=== PATIENT | male | born 1950 | race Caucasian/White ===

== ENCOUNTER 2019-07-15 01:21 | Inpatient (IN) ==
[2019-07-15] MEDS ORDERED: Aspirin 81 MG TAB.CHEW PO ONE (01:37)
[2019-07-15] MEDS ORDERED: *HR* Heparin 5,000 UNIT/ML VIAL ONE (01:43)
--- NOTE | 2019-07-15 01:49 | Emergency Department Note ---
Disposition Clinical Impression: ST elevation myocardial infarction (STEMI) Qualifiers: Involved coronary artery: unspecified coronary artery Qualified Code(s): I21.3 - ST elevation (STEMI) myocardial infarction of unspecified site Disposition: Admitted As Inpatient Condition: Serious Time of Disposition: 01:50 Chest Pain HPI - General Chief Complaint: ED Chest Pain Stated Complaint: Chest Pain Time Seen by Provider: 07/15/19 01:37 Source: patient, EMS Limitations: no limitations Vital Signs Reviewed: Yes Nursing Notes Reviewed: Yes - History of Present Illness HPI Narrative: 69-year-old male presents emergency department with concern for chest pain. Nicole taylor reports that he has had intermittent chest pain or last several months, but it got significantly worse today. Reports his chest tightness radiating to his left arm. Reports that he has also been diaphoretic with it as well. Patient holding his hand over his chest. He received aspirin and nitroglycerin in route. His history of peripheral arterial disease and hyperlipidemia, but only reports smoking marijuana. He also has hypertension as well. Severity scale (1-10): 7 - Related Data Allergies Allergy/AdvReac Type Severity Reaction Status Date / Time No Known Allergies Allergy Verified 07/15/19 01:29 All systems ED: reviewed and negative except as stated. Review of Systems: As Per HPI Constitutional: Denies: fever Chest Pain PMH - Past Medical History Medical history: Reports: hyperlipidemia, hypertension Psychiatric history: Reports: no psych history - Social History Smoking Status: Former smoker Alcohol use: Reports: occasionally Drug use: Reports: marijuana Physical Exam - General Limitations: no limitations General appearance: alert Course Vital Signs O2 Sat by Pulse Oximetry 88 07/15/19 01:32 Temperature 98.3 F 07/15/19 01:37 Pulse Rate 79 07/15/19 02:21 Respiratory Rate 20 07/15/19 02:35 Blood Pressure 175/84 07/15/19 02:35 O2 Sat by Pulse Oximetry 94 07/15/19 02:21 Oxygen Delivery Oxygen Delivery Nasal Cannula Chest Pain - MDM Narrative Medical decision making narrative: 69-year-old male presents to the emergency department with acute chest pain, appearing diaphoretic. STEMI alert was called as ST elevation in aVR with diffuse ST depressions raise concern for possible acute occlusion. I spoke to Dr. Laird immediately after calling the STEMI alert the insole presser who will be coming to bedside to see the patient after discussion on the phone. After the evaluation of the patient, Dr. Laird will take him to the [facility]. Patient received aspirin en route. Sublingual nitroglycerin glycerin was administered which relieved patient was chest pain. Nitroglycerin drip was started as well. Heparin was administered to patient. Brilinta was administered as well. Chest X-Ray 07/15/19 01:38 IMPRESSION: Mild bilateral perihilar/infrahilar reticulonodular interstitial prominence which may represent vascular congestion, bronchitis or other infectious/inflammatory process. No focal airspace consolidation or CHF. D/ / Lalito Fan MD / Lalito Fan MD Interpreting Provider: Lalito Fan MD - Lab Data Result diagrams: 07/15/19 01:45 07/15/19 01:45 Lab Results 07/15/19 07/15/19 07/15/19 Range/Units 01:45 01:45 01:45 WBC 20.7 H (4.3-11.1) K/mcL RBC 4.70 (4.19-5.50) M/mcL Hgb 14.7 (12.9-16.9) g/dL Hct 42.9 (37.5-50.1) % MCV 91.3 (83.0-100.0) fL MCH 31.3 (28.0-33.3) pg MCHC 34.3 (31.6-35.5) g/dL RDW 12.5 (11.5-14.5) % Plt Count 496 H (140-400) K/mcL MPV 9.0 L (9.4-12.4) fL Immature Gran % 4.0 (0-4) % Seg Neutrophils % 72.8 % Lymphocytes % 16.2 % Monocytes % 4.2 % Eosinophils % 1.8 % Basophils % 1.0 % Neutrophils # 15.1 H (1.6-8.9) K/mcL Lymphocytes # 3.4 (0.6-4.6) K/mcL Monocytes # 0.9 (0.0-1.3) K/mcL Eosinophils # 0.4 (0.0-0.6) K/mcL Basophils # 0.2 (0.0-0.2) K/mcL Sodium 139 (136-145) mEq/L Potassium 3.3 L (3.5-5.1) mEq/L Chloride 103 (98-107) mEq/L Carbon Dioxide 23 (23-29) mEq/L BUN 21 (8-23) mg/dL Creatinine 1.17 (0.70-1.30) mg/dL Est GFR ( Amer) > 60 (> 60) Est GFR (Non-Af Amer) > 60 (> 60) BUN/Creatinine Ratio 18 (6-26) Glucose 180 H (70-105) mg/dL Calculated Osmolality 296 (280-300) Calcium 10.2 (8.6-10.3) mg/dL Magnesium 2.2 (1.6-2.6) mg/dL Troponin I 0.23 H* (< 0.04) ng/mL Specimen Rejected Miscellaneous - EKG Data EKG attestation: Yes I reviewed and interpreted this EKG. EKG results narrative: Dear 1:29 Heart rate 87 bpm, MT interval 180 ms, QRS duration 83 ms, QT 369 ms, QTC 444 ms , normal axis. Sinus rhythm, heart rate of [address] elevation of 2 mm in aVR as well as 1.5 mm of elevation in V1. There is also diffuse ST depression in the inferior, anterior, and lateral leads. ECG was received and signed at 01:33. STEMI alert was called upon seeing patient at 01:36 I have spoken to the insole presser, Dr. Laird about the patient who will be coming to see the patient at bedside. Heart Score - Score History: Highly Suspicious EKG: Significant ST-Depression Age: Greater than 65 Risk Factors: Equal/Greater than 3 risk factor or history of atherosclerotic disease
[2019-07-15] MEDS ORDERED: Heparin 1,000 UNITS/500 mL 500 ML ONE (01:58)
[2019-07-15] MEDS ORDERED: *HR* Midazolam HCl 2 MG/2 ML VIAL ONE (01:58)
[2019-07-15] MEDS ORDERED: *HR* Heparin 10,000 UNIT/10 ML VIAL ONE (01:58)
[2019-07-15] MEDS ORDERED: Tirofiban 12.5 MG/250ML 12.5 MG/250 ML BAG ONE (01:58)
[2019-07-15] MEDS ORDERED: *HR* FentaNYL (PF) 100 MCG/2 ML VIAL ONE (01:58)
[2019-07-15] MEDS ORDERED: 0.9 % Sodium Chloride 1,000 ML ONE ×2 (01:58→01:59)
[2019-07-15] MEDS ORDERED: Iopamidol 125 ML INFUS..BTL ONE ×3 (01:59→03:17)
[2019-07-15] MEDS ORDERED: Nitroglycerin 1,000 MCG/10 ML VIAL IV ONE (01:59)
[2019-07-15] MEDS: Nitroglycerin 0.4 MG TAB.SUBL SL ONE ×2 (02:05→02:10)
[2019-07-15] MEDS: Nitroglycerin 25 MG/250 ML INFUS..BTL IVC SCH ×2 (02:12→16:45)
[2019-07-15 02:14] LABS: Basophils # 0.2 K/mcL (0.0-0.2); Eosinophils # 0.4 K/mcL (0.0-0.6); Eosinophils % 1.8 %; Hematocrit 42.9 % (37.5-50.1); Hemoglobin 14.7 g/dL (12.9-16.9); Lymphocytes # 3.4 K/mcL (0.6-4.6); Lymphocytes % 16.2 %; Mean Corpuscular HGB Conc 34.3 g/dL (31.6-35.5); Mean Corpuscular Hemoglobin 31.3 pg (28.0-33.3); Mean Corpuscular Volume 91.3 fL (83.0-100.0); Monocytes # 0.9 K/mcL (0.0-1.3); Monocytes % 4.2 %; Neutrophils # 15.1 K/mcL (1.6-8.9); Platelet Count 496 K/mcL (140-400); Red Cell Distribution Width 12.5 % (11.5-14.5); Segmented Neutrophils % 72.8 %; White Blood Count 20.7 K/mcL (4.3-11.1)
[2019-07-15] MEDS ORDERED: *HR* Heparin 5,000 UNIT/ML VIAL IVP PRN ×2 (02:14)
[2019-07-15] MEDS ORDERED: *HR* Heparin 5,000 UNIT/ML VIAL IVP ONE (02:14)
[2019-07-15] MEDS: *HR* Ticagrelor 90 MG TABLET PO ONE ×2 (02:16→02:28)
[2019-07-15 02:30] LABS: BUN/Creatinine Ratio 18 (6-26); Blood Urea Nitrogen 21 mg/dL (8-23); Calcium 10.2 mg/dL (8.6-10.3); Carbon Dioxide 23 mEq/L (23-29); Chloride 103 mEq/L (98-107); Glucose 180 mg/dL (70-105); Magnesium 2.2 mg/dL (1.6-2.6); Osmolality,Calculated 296 (280-300); Potassium 3.3 mEq/L (3.5-5.1); Sodium 139 mEq/L (136-145); eGFR For African Americans > 60 (> 60); eGFR For Non-African Americans > 60 (> 60)
[2019-07-15 02:33] LABS: Troponin I 0.23 ng/mL (< 0.04)
--- NOTE | 2019-07-15 02:42 | Emergency Department Note ---
Disposition Clinical Impression: ST elevation myocardial infarction (STEMI) Qualifiers: Involved coronary artery: unspecified coronary artery Qualified Code(s): I21.3 - ST elevation (STEMI) myocardial infarction of unspecified site Disposition: Admitted As Inpatient Condition: Serious Time of Disposition: 01:50 General Adult HPI - General Chief complaint: ED Chest Pain Stated complaint: Chest Pain Time Seen by Provider: 07/15/19 01:37 Source: patient, EMS Limitations: no limitations Nursing Notes Reviewed: Yes Vital Signs Reviewed: Yes - History of Present Illness Pain Scale: 7 - Related Data Allergies Allergy/AdvReac Type Severity Reaction Status Date / Time No Known Allergies Allergy Verified 07/15/19 01:29 Constitutional: Denies: fever Past Medical History - Past Medical History Medical history: Reports: hyperlipidemia, hypertension Psychiatric history: Reports: no psych history - Social History Smoking Status: Former smoker Smokeless Tobacco Status: No Alcohol use: Reports: occasionally Drug use: Reports: marijuana Physical Exam - General Limitations: no limitations General appearance: alert Course Vital Signs O2 Sat by Pulse Oximetry 88 07/15/19 01:32 Temperature 98.3 F 07/15/19 01:37 Pulse Rate 79 07/15/19 02:21 Respiratory Rate 20 07/15/19 02:35 Blood Pressure 175/84 07/15/19 02:35 O2 Sat by Pulse Oximetry 94 07/15/19 02:21 Oxygen Delivery Oxygen Delivery Nasal Cannula Medical Decision Making - Lab Data Lab results reviewed: Yes I reviewed the patient's lab results. Result diagrams: 07/15/19 01:45 07/15/19 01:45 Lab Results 07/15/19 07/15/19 07/15/19 Range/Units 01:45 01:45 01:45 WBC 20.7 H (4.3-11.1) K/mcL RBC 4.70 (4.19-5.50) M/mcL Hgb 14.7 (12.9-16.9) g/dL Hct 42.9 (37.5-50.1) % MCV 91.3 (83.0-100.0) fL MCH 31.3 (28.0-33.3) pg MCHC 34.3 (31.6-35.5) g/dL RDW 12.5 (11.5-14.5) % Plt Count 496 H (140-400) K/mcL MPV 9.0 L (9.4-12.4) fL Immature Gran % 4.0 (0-4) % Seg Neutrophils % 72.8 % Lymphocytes % 16.2 % Monocytes % 4.2 % Eosinophils % 1.8 % Basophils % 1.0 % Neutrophils # 15.1 H (1.6-8.9) K/mcL Lymphocytes # 3.4 (0.6-4.6) K/mcL Monocytes # 0.9 (0.0-1.3) K/mcL Eosinophils # 0.4 (0.0-0.6) K/mcL Basophils # 0.2 (0.0-0.2) K/mcL Sodium 139 (136-145) mEq/L Potassium 3.3 L (3.5-5.1) mEq/L Chloride 103 (98-107) mEq/L Carbon Dioxide 23 (23-29) mEq/L BUN 21 (8-23) mg/dL Creatinine 1.17 (0.70-1.30) mg/dL Est GFR ( Amer) > 60 (> 60) Est GFR (Non-Af Amer) > 60 (> 60) BUN/Creatinine Ratio 18 (6-26) Glucose 180 H (70-105) mg/dL Calculated Osmolality 296 (280-300) Calcium 10.2 (8.6-10.3) mg/dL Magnesium 2.2 (1.6-2.6) mg/dL Troponin I 0.23 H* (< 0.04) ng/mL Specimen Rejected Miscellaneous - Radiology Data Radiology results reviewed: Yes I reviewed the patient's radiology results. Chest X-Ray 07/15/19 01:38 IMPRESSION: Mild bilateral perihilar/infrahilar reticulonodular interstitial prominence which may represent vascular congestion, bronchitis or other infectious/inflammatory process. No focal airspace consolidation or CHF. D/ / Lalito Fan MD / Lalito Fan MD Interpreting Provider: Lalito Fan MD - EKG Data EKG #1 EKG attestation: Yes I reviewed and interpreted this EKG. EKG results narrative: EKG shows a sinus rhythm with ventricular rate of 87. Significant ST elevation in aVR and mild ST elevation in V1. Generalized ST segment depression in all other leads except aVL. Critical Care Time Critical Care Time: Yes Total Critical Care Time: 45 Attestation: Critical care performed: Time is exclusive of separately billable procedures. Time includes: direct patient care, patient reassessment, coordination of patient care, interpretation of data (laboratory data, radiology data, and respiratory data), review of patient's medical records, medical consultation and documentation of patient care. Procedures included in critical care time: Procedures excluded from critical care time: Attestation Statement - Attestation Attestation: I, Terrance Escobar MD, personally evaluated this patient and discussed their management with the resident physician. I reviewed the resident's note and agree with the documented findings, medical decision making, and plan of care. I reviewed the residents documentation and agree with the residents assessment and plan of care. I have personally had face to face time with the patient. I personally supervised and was present for the lopez/critical portions of the following procedures completed by the resident: EKG interpretation. 69-year-old male presents to the emergency department with a complaint of severe left-sided chest pain which started about 10 PM tonight and has been constant since onset. Pain radiates to the left arm. Patient complains of shortness of breath with the pain. Some nausea. A few episodes of diaphoresis. No prior history of heart disease. Patient does have a history of hypertension. On examination patient is a well-developed well-nourished elderly male in no acute distress but does appear to be in moderate discomfort. Patient is alert and oriented 3. There is no cyanosis or diaphoresis. Chest is nontender to palpation. Breath sounds are clear and equal bilaterally. Heart regular rate and rhythm. Abdomen soft and nontender with normal bowel sounds. Labs reviewed. Troponin 0.23. EKG shows a sinus rhythm with ventricular rate of 87. Significant ST elevation in aVR and mild ST elevation in V1. Generalized ST segment depression in all other leads except aVL. Chest x-ray showed mild bilateral perihilar/infrahilar vascular congestion. The patient's presentation and symptoms and history and accommodation with the significantly abnormal EKG findings a STEMI alert was called. Patient was seen in the emergency department by the bell tier, Dr. Laird. Patient was taken to the cardiac catheter lab.
[2019-07-15] MEDS ORDERED: Furosemide 40 MG/4 ML VIAL ONE ×2 (02:44→08:46)
--- NOTE | 2019-07-15 03:40 | Cardiology History & Physical ---
Date of Encounter: 07/15/19 Time of Encounter: 03:37 Assessment and Plan (1) Myocardial infarction acute Current Visit: Yes Status: Acute The assessment and plan as outlined above was discussed with the patient and/or family members who expressed understanding and agreement. All questions were answered. Crushing chest pain/SOB, EKG with global ischemia, no improvement yet patient deteriorated on way to cathlab. R/B/A d/w patient for emergent LHC and he agreed. Qualifiers: Myocardial infarction type: non-ST elevation myocardial infarction Qualified Code(s): I21.4 - Non-ST elevation (NSTEMI) myocardial infarction History of Present Illness Chief complaint: Chest Pain HPI: Mr. Mack is a 69 year old male hx of PAD here in ER with on and off months of CP and SOB, presented with unrelenting severe chest pain and SOB started at 10 pm. EKG with global ischemia possible left main/left main equivalent. R/B/A d/w patient and he was taken emergently to the Cathlab. Initially patient was SOB and became more SOB with possible ACPE. Full h&P could not be obtained due to emergent nature of presentation. Past Med Surg Social Fam HX - Past Medical History Medical history: hyperlipidemia, hypertension Psychiatric history: no psych history - Past Surgical History Additional surgical history: stents in right leg. neck surgery - Social History Smoking Status: Former smoker Smokeless Tobacco Status: No Alcohol use: occasionally Drug use: marijuana Medications and Allergies Allergy/AdvReac Type Severity Reaction Status Date / Time No Known Allergies Allergy Verified 07/15/19 01:29 All Systems Review: The remainder of the systems were reviewed and are negative Physical Examination Vital Signs, Last 4 Hours Temp Pulse Resp BP Pulse Ox 07/15/19 02:35 20 175/84 07/15/19 02:21 79 20 157/64 94 07/15/19 02:08 81 20 157/87 94 07/15/19 01:56 95 24 175/74 94 07/15/19 01:49 92 07/15/19 01:37 98.3 F 95 28 152/74 92 07/15/19 01:35 95 28 152/74 92 07/15/19 01:32 92 General: Conversant, No Apparent Distress HEENT: Atraumatic, Normocephaly, Mucus Membranes Moist Neck: No JVD, Normal carotid pulses Cardiac: Reg Rate and Rhythm, Normal S1 and S2, No Murmur Lungs: Normal Breath Sounds, No Wheeze, Rales, Rhonchi Neuro: Alert and responsive, No focal deficits noted Abdomen: Soft, Non-Tender Skin: No rashes noted on visualized skin Musculoskeletal: No Chest Wall Tenderness Extremities: No Clubbing, No Cyanosis, No Edema, Normal Pulses Results 07/15/19 01:45 07/15/19 01:45 Lab Results 07/15/19 07/15/19 01:45 01:45 WBC 20.7 H Hgb 14.7 Hct 42.9 Plt Count 496 H Sodium 139 Potassium 3.3 L Chloride 103 Carbon Dioxide 23 BUN 21 Creatinine 1.17 Glucose 180 H Calcium 10.2 Magnesium 2.2 Troponin I 0.23 H*
[2019-07-15] MEDS ORDERED: Tirofiban 12.5 MG/250ML 12.5 MG/250 ML BAG IVC SCH (03:45)
--- NOTE | 2019-07-15 04:11 | Invasive Diagnostic Lab Proc ---
Name: Emanuel Mack Date of Study: 07/15/2019 Date: 1950 Ht: 68.0in Medical Record#: [id number] Age: 69 Wt: 178.35lb Gender: Male BSA: 1.95 Order #: [id number] BMI: 27.12 Physicians Procedure Physician: Alberto Laird MD Referring MD: Referring MD: Procedures Performed Procedure L HRT ARTERY/VENTRICLE ANGIO PRQ CARD REVASC OK 1 VSL Pre-Procedure Checklist Informed consent is complete signed and on chart. Pt not NPO for procedure and MD aware. Blood Pressure: 156/82 Rhythm: NSR Plan of Care Patient will tolerate the procedure without complications. Adequate level of comfort will be maintained. Hemodynamics will remain stable Patient will recover from procedure without complications. Respiratory function will be maintained. Cardiac rhythm will remain stable. Patient temperature will be maintained. Patient and/or family have verbalized understanding of the procedure. Patient Education Intravenous Access Time IV Size Location DC'd Fluid/Drip Rate Units RN 20g 1 1/4" Patent On Arrival Rt Antecubital 20g 1 1/4" Patent On Arrival Lt Arm Allergies No Known Allergies Vital Signs Time BP (mmHg) HR (bpm) O2 Sat. RR (bpm) LOC 02:54 AM 135 / 84 108 95 % 03:00 AM 172 / 85 94 99 % 22 03:04 AM 156 / 82 90 100 % 22 03:09 AM 123 / 75 92 97 % 18 03:14 AM 142 / 92 106 100 % 21 03:20 AM 157 / 71 86 96 % 22 03:24 AM 156 / 70 91 96 % 24 03:30 AM 189 / 88 94 98 % 23 03:35 AM 169 / 86 93 97 % 20 03:39 AM 177 / 97 104 99 % 20 02:49 AM 133 / 84 98 94 % 20 Procedural Medications Time Medication Dose Units Method Given By 02:54 AM Versed 1 mg Intravenous Payam Reyes RN 02:55 AM Fentanyl 50 mcg Intravenous Payam Reyes RN 02:35 AM Nitroglycerin ml/hr Intravenous 02:41 AM Lidocaine 2% 20 ml Subcutaneous Moussa 02:40 AM Fentanyl 50 mcg Intravenous Payam Reyes RN 03:27 AM Plavix 150 mg Orally Payam Reyes RN 03:29 AM Ancef 1000 mg Intravenous Andexler, Payam S RN 02:45 AM Heparin 1000 units Intravenous Payam Reyes RN 02:50 AM Lasix 40 mg Intravenous Payam Reyes RN 03:10 AM Aggrastat Bolus: 42 ml Intravenous Payam Reyes RN 03:15 AM Aggrastat 12.5mg/250ml 15 ml Intravenous Payam Reyes RN 02:40 AM Versed 1 mg Intravenous Payam Reyes RN ASA Classification: CLASS II- Mild systemic disease (i.e. well-controlled diabetes, hypertension, asthma, cigarette smoking) Ben Score Preprocedure Postprocedure Activity 2- Moves 4 extremities sustained head lift Activity 2- Moves 4 extremities sustained head lift Circulation 2- SBP +/= 20 points of pre-anesthetic level Circulation 2- SBP +/= 20 points of pre-anesthetic level Consciousness 2- Awake and alert oriented x 3 Consciousness 2- Awake and alert oriented x 3 O2 Saturation 1- Needs O2 inhalation to maintain O2 saturation of 90% O2 Saturation 2- Able to maintain O2 satruation of 92% on room air Respiratory 1- Labored or limited respiration requires airway Respiratory 2- Able to deep breathe and cough well Total Score 8 Total Score 10 Contrast Agent: Isovue Diagnostic Contrast: 390 ml Total Contrast: 390 ml Fluoro Dose: 87 mGy Procedure Log Time Note Enter By 02:35 AM Patient arrived at 02:35 with Nitroglycerin Intravenous drip @ 20 ml/hr oparker 02:35 AM Pt arrived to cytology laboratory manager 2 at 02:35 oparker 02:35 AM Patient charges- Angio tray pack, Navilyst 3mm J, Pulse Oximetry and ACIST tubing and transducer oparker 02:35 AM Physician arrived 02:35 oparker 02:35 AM Byron and eddie completed oparker 02:35 AM Sign in performed according to hospital policy. Informed consent was obtained. oparker 02:38 AM Procedure start :38 oparker 02:40 AM Time: 02:40 Versed 1 mg Intravenous Given by Payam Reyes RN opajabari 02:40 AM Time: 02:40 Fentanyl 50 mcg Intravenous Given by Payam Reyes RN 02:41 AM Time: 02:41 20 ml Lidocaine 2% to right groin Subcutaneous Given by Eitan oparker 02:41 AM Time out was performed according to hospital policy. Conscious sedation and anesthesia was achieved (see medication log with in this report above) oparker 02:42 AM Access obtained by percutaneous puncture. 6Fr 10cm Terumo Coburn sheath placed in right Femoral artery. [id number] oparker 02:45 AM 0.035 145cm Navilyst 3mmJ wire [id number] oparker 02:46 AM LCA angiography performed in multiple views. oparker 02:46 AM 5Fr FL 4 catheter inserted over the wire DNC oparker 02:48 AM .014 BMW Lena 190cm guide wire across target lesion- successful. reused? No oparker 02:48 AM 6Fr XB LAD 3.5 Runway guide catheter was used to cannulate the PCI vessel successfully. reused? No oparker 02:49 AM .014 BMW Lena 190cm guide wire # 2 across target lesion- successful. reused? No oparker 02:50 AM Respiratory called for intubation oparker 02:51 AM 2.0 mm x 12 mm Emerge Monorail balloon across target lesion- successful. reused? No oparker 02:52 AM CathStat 02:52 AM Recorded Pressure: Ao, YM=736, Condition=Condition 1 (Aorta) Ao 90/68/79 02:53 AM Recorded Pressure: Ao, PD=470, Condition=Condition 1 (Aorta) Ao 117/66/90 02:53 AM Vitals capture started with the following parameters, Patient=Adult, Interval=5 min, Initial Onwudwgs=047 mmHg, Deflation Rate=3 mmHg, Cuff placed on Right Arm 02:54 AM Balloon catheter removed intact. oparker 02:54 AM BN=024 bpm, RLFF=596/84 mmhg, SpO2=95.0 % 02:55 AM Time: 02:54 Versed 1 mg Intravenous Given by Payam Reyes RN oparker 02:55 AM Time: 02:55 Fentanyl 50 mcg Intravenous Given by Payam Reyes RN oparker 02:55 AM 2.5 mm x 12 mm Emerge Monorail balloon across target lesion- successful. reused? No oparker 02:55 AM Balloon inflated @ 10 akosua for 6 seconds oparker 02:56 AM Balloon inflated @ 10 akosua for 7 seconds oparker 02:57 AM Balloon inflated @ 10 akosua for 4 seconds oparker 02:57 AM Balloon inflated @ 10 akosua for 4 seconds oparker 02:57 AM Balloon inflated @ 10 akosua for 4 seconds oparker 02:58 AM Balloon catheter removed intact. oparker 02:58 AM Recorded Pressure: Ao, YR=809, Condition=Condition 1 (Aorta) Ao 130/75/100 02:59 AM Recorded Pressure: Ao, HR=96, Condition=Condition 1 (Aorta) Ao 151/70/105 03:00 AM HR=94 bpm, TAEJ=777/85 mmhg, SpO2=99.0 %, Resp=22 B/min 03:01 AM 3.5mm x 20mm Synergy drug-eluting stent across target lesion- successful Lot #[id number] oparker 03:02 AM Recorded Pressure: Ao, HR=90, Condition=Condition 1 (Aorta) Ao 97/52/74 03:04 AM Recorded Pressure: Ao, HR=90, Condition=Condition 1 (Aorta) Ao 116/67/91 03:04 AM HR=90 bpm, SZJF=423/82 mmhg, UlO9=277.0 %, Resp=22 B/min 03:08 AM Stent deployed @ 9 akosua for 10 seconds oparker 03:08 AM Stent balloon reinflated @ 16 akosua for 7 seconds oparker 03:08 AM NIBP STAT measurement started. 03:09 AM HR=92 bpm, ESYK=474/75 mmhg, SpO2=97.0 %, Resp=18 B/min 03:09 AM Stent delivery system removed intact. oparker 03:10 AM Time: 03:10 Aggrastat Bolus: 42 ml Intravenous Given by Payam Reyes RN Aruajo pump oparker 03:11 AM Recorded Pressure: Ao, HR=94, Condition=Condition 1 (Aorta) Ao 146/65/100 03:11 AM 4.0 mm x 20mm NC Emerge balloon across target lesion- successful. reused? No oparker 03:12 AM anesthesia arrived oparker 03:12 AM Balloon inflated @ 12 akosua for 4 seconds oparker 03:12 AM Balloon inflated @ 12 akosua for 4 seconds oparker 03:13 AM Balloon inflated @ 12 akosua for 4 seconds oparker 03:13 AM Balloon inflated @ 12 akosua for 3 seconds oparker 03:14 AM SN=473 bpm, OKKY=693/92 mmhg, BpX2=380.0 %, Resp=21 B/min 03:14 AM Balloon catheter removed intact. oparker 03:14 AM Recorded Pressure: Ao, DR=719, Condition=Condition 1 (Aorta) Ao 161/79/116 03:15 AM Time: 03:15 Aggrastat 12.5mg/250ml 15 ml Intravenous Given by Payam Reyes RN Araujo pump oparker 03:18 AM Recorded Pressure: Ao, HR=91, Condition=Condition 1 (Aorta) Ao 130/54/85 03:20 AM HR=86 bpm, ZNUF=359/71 mmhg, SpO2=96.0 %, Resp=22 B/min 03:22 AM Guide wire removed intact. oparker 03:22 AM Guide wire 2 removed intact. oparker 03:23 AM Guide catheter removed intact. oparker 03:23 AM 5Fr FR 4 catheter inserted over the wire DNC oparker 03:24 AM Recorded Pressure: LV, HR=88, Condition=Condition 1 (Left Ventricle) LV 145/6/9 03:24 AM Catheter crossed the aortic valve and was selectively placed in the left ventricle. Pressures recorded on pullback for left heart catheterization. oparker 03:24 AM HR=91 bpm, HEVQ=808/70 mmhg, SpO2=96.0 %, Resp=24 B/min 03:24 AM Recorded Pressure: LV, Ao, HR=87, Condition=Condition 1 (Left Ventricle) LV 69/14/65, (Aorta) Ao 120/56/88 03:25 AM RCA angiography performed in multiple views. oparker 03:25 AM Catheter removed oparker 03:26 AM Procedure completed at 03:26 07/15/2019 oparker 03:26 AM Did you address KARLENE flow and Dominance? YesCoronary Dominance: Left oparker 03:27 AM Sign out completed: Radiation Dose 1085.26 mGy, 86.7 Gy/cm2 Fluoro Time: 14.6 Isovue 370 - 200ml contrast 390 ml given by Alberto Laird MD. Complications: None. The patient was discharged out of the medical laboratory manager in stable condition. Sedation minutes 50. Cardiac Rehab Consult needed: Yes. Confirmed administered medications: Yes oparker 03:27 AM Time: 03:27 Plavix 150 mg Orally Given by Payam Reyes RN oparker 03:27 AM Isovue 370 - 200ml,4 Bottle(s) used. oparker 03:28 AM Arterial sheath pulled, Angio-seal closure device used and was Successful [id number] S/N. oparker 03:28 AM Estimated Blood Loss: less than 50cc oparker 03:28 AM Post ECG NSR oparker 03:28 AM Post Blood Pressure 156/70 oparker 03:28 AM 03:28 Post Pulses Bilateral DP 1+ oparker 03:28 AM Information taught Cardiac Cath, PCI, and Angioseal oparker 03:28 AM Education needs Procedure, Plan of Care, and Disease Process oparker 03:28 AM Family placed in consult room. oparker 03:28 AM Learning barriers :None oparker 03:28 AM Education Methods Verbal oparker 03:28 AM Education evaluation Able to repeat information oparker 03:29 AM Time: 03:29 Ancef 1000 mg Intravenous Given by Payam Reyes RN oparvitor 03:30 AM HR=94 bpm, AITM=716/88 mmhg, SpO2=98.0 %, Resp=23 B/min 03:32 AM Time: 02:45 Heparin 1000 units Intravenous Given by Payam Reyes RN oparvitor 03:33 AM Time: 02:50 Lasix 40 mg Intravenous Given by Payam Reyes RN oparker 03:35 AM HR=93 bpm, UKNS=187/86 mmhg, SpO2=97.0 %, Resp=20 B/min 03:36 AM Site status No bleeding/ No Hematoma - Rt Groin as reported by Rosibel Jensen RT (R) at 03:36 oparker 03:36 AM Opsite applied oparker 03:39 AM ASA Class CLASS II- Mild systemic disease (i.e. well-controlled diabetes, hypertension, asthma, cigarette smoking) oparker 03:39 AM QV=976 bpm, KTVT=296/97 mmhg, SpO2=99.0 %, Resp=20 B/min 03:44 AM Lesion found in Ostial LMCA. Pre Stenosis: 99 Pre KARLENE Flow: 3: Complete and Brisk Flow/Perfusion oparker 03:44 AM Left Main Coronary Artery with 99% stenosis oparker 03:45 AM Vitals capture stopped. 03:45 AM Mid/Distal Left Anterior Descending Coronary Artery and diagonal branches with 65% stenosis. If graft is supplying this area, 0 % stenosis opajabari 03:45 AM Lesion found in Mid LAD. Pre Stenosis: 65 Pre KARLENE Flow: angela 04:06 AM Patient out of room: 04:05 angela 04:06 AM Report given to Cesar WRIGHT Pt taken to ICU Room #4. 04:06 angela Complications Complication None Hemodynamics Pressures Site Systolic/A Wave Diastolic/V Wave Mean AO 90 68 79 AO 117 66 90 AO 130 75 100 AO 151 70 105 AO 97 52 74 AO 116 67 91 AO 146 65 100 AO 161 79 116 AO 130 54 85 LV 145 6 9 LV 69 14 65 AO 120 56 88 Post Procedure Information Blood Pressure: 156/70 mmHg Rhythm: NSR Post procedural instructions were given Closure Device Time Device Success/Fail 07/15/2019 3:35:00 AM Angio-Seal VIP Successful Site Checks Time Location Status Staff Sheath In? Note 03:36 AM Rt Groin No bleeding/ No Hematoma Rosibel Jensen RT (R) Pulses Time Site Pre-Procedure Post-Procedure Note 3:28:00 AM Bilateral DP 1+ Updated by Pascual Forrest RN on 07/15/2019 4:06:16 AM electronically signed on 07/15/2019 4:06:37 AM with status of Final
[2019-07-15] MEDS: Heparin 25,000 UNIT/250 ML D5W 25,000 UNIT/250 ML IV.SOLN IVC SCH ×2 (04:22→21:04)
[2019-07-15 06:23] LABS: Basophils # 0.2 K/mcL (0.0-0.2); Basophils % 0.7 %; Eosinophils % 0.1 %; Hematocrit 41.8 % (37.5-50.1); Hemoglobin 14.6 g/dL (12.9-16.9); Immature Granulocytes % 3.5 % (0-4); Lymphocytes # 1.6 K/mcL (0.6-4.6); Lymphocytes % 7.2 %; Mean Corpuscular HGB Conc 34.9 g/dL (31.6-35.5); Mean Corpuscular Hemoglobin 31.7 pg (28.0-33.3); Mean Corpuscular Volume 90.7 fL (83.0-100.0); Mean Platelet Volume 8.8 fL (9.4-12.4); Monocytes % 4.3 %; Neutrophils # 19.1 K/mcL (1.6-8.9); Platelet Count 485 K/mcL (140-400); Red Blood Count 4.61 M/mcL (4.19-5.50); Red Cell Distribution Width 12.7 % (11.5-14.5); Segmented Neutrophils % 84.2 %; White Blood Count 22.7 K/mcL (4.3-11.1)
[2019-07-15 06:30] LABS: Heparin anti-factor XA UFH 0.37 IU/mL (0.30-0.70); INR 0.8; Prothrombin Time 9.6 Seconds (9.4-12.1)
[2019-07-15 06:33] LABS: Activated Partial Thrombo Time 49.5 Seconds (26.0-36.0)
[2019-07-15 06:45] LABS: BUN/Creatinine Ratio 19 (6-26); Blood Urea Nitrogen 20 mg/dL (8-23); Calcium 9.4 mg/dL (8.6-10.3); Carbon Dioxide 23 mEq/L (23-29); Chloride 100 mEq/L (98-107); Glucose 182 mg/dL (70-105); Osmolality,Calculated 293 (280-300); Sodium 138 mEq/L (136-145); eGFR For African Americans > 60 (> 60); eGFR For Non-African Americans > 60 (> 60)
[2019-07-15] MEDS ORDERED: *HR* EPINEPHrine 1 MG/10 ML SYRINGE IVP ONE (08:22)
[2019-07-15] MEDS ORDERED: Furosemide 40 MG/4 ML VIAL IVP STA (08:56)
[2019-07-15] MEDS: Aspirin 81 MG TAB.CHEW PO SCH (08:59)
[2019-07-15] MEDS ORDERED: Furosemide 40 MG in 0.9 % Sodium Chloride 100 ML IV ONE (09:00)
--- NOTE | 2019-07-15 20:58 | Electrocardiograph Report ---
[address] [place], [place] [address] Test Date: 2019-07-15 Pat Name: Emanuel Mack Department: 109 Room: [facility] Gender: M Cardiology Tech: : 1950 Requested By: Alberto Laird Order Number: [id number] Reading MD: Gallo Ng Measurements Intervals [place] Rate: 120 P: 72 SD: 181 QRS: 77 QRSD: 90 T: 29 QT: 324 QTc: 396 Interpretive Statements SINUS TACHYCARDIA NONSPECIFIC ST & T-WAVE ABNORMALITY Electronically Signed On 07-15-2019 20:56:27 EDT by Gallo Ng
[2019-07-15] MEDS ORDERED: Melatonin 3 MG TABLET PO PRN (23:03)
[2019-07-16] MEDS: Nitroglycerin 25 MG/250 ML INFUS..BTL IVC SCH ×2 (03:03→13:30)
[2019-07-16] MEDS: Aspirin 81 MG TAB.CHEW PO SCH (08:24)
[2019-07-16 11:02] LABS: Eosinophils % 1.1 %; Hematocrit 32.9 % (37.5-50.1); Immature Granulocytes % 1.2 % (0-4); Lymphocytes % 18.1 %; Mean Corpuscular HGB Conc 35.3 g/dL (31.6-35.5); Mean Corpuscular Hemoglobin 31.9 pg (28.0-33.3); Mean Corpuscular Volume 90.4 fL (83.0-100.0); Mean Platelet Volume 8.8 fL (9.4-12.4); Monocytes % 7.6 %; Platelet Count 338 K/mcL (140-400); Red Blood Count 3.64 M/mcL (4.19-5.50); Red Cell Distribution Width 12.8 % (11.5-14.5); Segmented Neutrophils % 71.5 %; White Blood Count 16.4 K/mcL (4.3-11.1)
[2019-07-16 11:03] LABS: Basophils # 0.1 K/mcL (0.0-0.2); Basophils % 0.5 %; Eosinophils # 0.2 K/mcL (0.0-0.6); Monocytes # 1.3 K/mcL (0.0-1.3); Neutrophils # 11.7 K/mcL (1.6-8.9)
[2019-07-16 11:10] LABS: BUN/Creatinine Ratio 22 (6-26); Blood Urea Nitrogen 25 mg/dL (8-23); Calcium 9.1 mg/dL (8.6-10.3); Carbon Dioxide 26 mEq/L (23-29); Chloride 101 mEq/L (98-107); Glucose 136 mg/dL (70-105); Hemoglobin 11.6 g/dL (12.9-16.9); Osmolality,Calculated 290 (280-300); Potassium 4.2 mEq/L (3.5-5.1); Sodium 137 mEq/L (136-145); eGFR For African Americans > 60 (> 60); eGFR For Non-African Americans > 60 (> 60)
--- NOTE | 2019-07-16 12:21 | Cardiology Progress Note ---
Date of Encounter: 07/16/19 Time of Encounter: 11:00 Assessment and Plan (1) ST elevation myocardial infarction (STEMI) Current Visit: Yes Status: Acute Per cardiology: -Admitted as STEMI, s/p C with PCI to left main with TY. Has remaining moderate CAD. -Denies chest pain. -ON asa, statin, BB, plavix. Educated on dual anti-platelet therapy uninter rupted for at least one year. -Right groin access site without hematoma. -TTE with LVEF 40-45%, segmental wall motion abnormalities noted. -Plan to transfer out of ICU today. -Continue telemetry. -DVT prophylaxis. -WIll continue to closely monitor. Qualifiers: Involved coronary artery: unspecified coronary artery Qualified Code(s): I2 1.3 - ST elevation (STEMI) myocardial infarction of unspecified site (2) Acute systolic CHF (congestive heart failure) Current Visit: Yes Status: Acute Per cardiology: -Acute systolic CHF, reported NYHA class IV symptoms upon presentation. -Patient was diuresed yesterday. -CHest x-ray this am with near resolution of pulmonary edema. -Euvolemic on exam today. -LVEF as above, 40-45%. -On BB, carroll inhibitor. -Will add oral lasix today. -Strict i/os, fluid restriction, daily weights. -Will switch BB to long acting prior to discharge. (3) Essential hypertension Current Visit: Yes Status: Chronic Per cardiology: -Known HTN, currently on nitro drip. -BP currently 140s. -Will increase carroll inhibitor, wean nitro drip to off. -Will continue to monitor. Discussion w patient/family: The assessment and plan as outlined above was discussed with the patient who expressed understanding and agreement. All questions were answered. Thank you for involving us in the care of your patient. Please call with any questions. Discussed and reviewed with . Subjective Principal diagnosis: STEMI Interval history: Patient is s/p C yesterday with PCI to left main. Patient denies chest pain. Patient states he feels well. Denies shortness of breath. Objective Vital Signs, Last 4 Hours Temp Pulse Resp BP Pulse Ox 07/16/19 12:00 63 17 149/66 96 07/16/19 11:42 98.1 F 07/16/19 11:00 55 15 129/60 96 07/16/19 10:00 62 14 134/66 96 07/16/19 09:00 76 18 137/65 97 General: Conversant, No Apparent Distress HEENT: Atraumatic, Normocephaly, Mucus Membranes Moist Neck: No JVD, Normal carotid pulses Cardiac: Reg Rate and Rhythm, Normal S1 and S2, No Murmur Lungs: Normal Breath Sounds, No Wheeze, Rales, Rhonchi Neuro: Alert and responsive, No focal deficits noted Abdomen: Soft, Non-Tender Skin: No rashes noted on visualized skin, Other (Right groin access site dressing clean, dry, intact. No hematoma. ) Musculoskeletal: No Chest Wall Tenderness Extremities: No Clubbing, No Cyanosis, No Edema, Normal Pulses Results 07/16/19 10:44 07/16/19 10:44 Lab Results Impressions Echocardiogram 07/15/19 03:34 Impressions: LVEF 40-45%. Moderate segmental left ventricular systolic dysfunction. Mild left ventricular diastolic dysfunction. Normal right ventricular structure and function. Mild tricuspid regurgitation. No pulmonary hypertension. Left Ventricular Wall Motion: Rest Echo Findings The apical inferior, apical anterior, mid anterior, mid inferior septal, apical lateral, mid anterior septal and basal anterior septal hummel were hypokinetic. The apex and apical septal hummel were akinetic. All other wall segments showed normal motion. Findings: Study Quality * Technically sub-optimal due to clinical status. ECG Findings * Normal sinus rhythm. Left Ventricle * LVEF 40-45%. * Normal LV chamber size, wall thickness. * Moderate segmental left ventricular systolic dysfunction. * Mild left ventricular diastolic dysfunction. Right Ventricle * Normal right ventricular structure and function. Left Atrium * Normal left atrial size. Right Atrium * Normal right atrial size. Interatrial Septum * Interatrial septum not well evaluated. Aortic Valve * Aortic valve not well visualized. * Moderately calcified aortic valve leaflets. * No aortic stenosis. * No aortic regurgitation. Mitral Valve * Normal mitral valve structure. * No mitral stenosis. * Trace mitral regurgitation. Tricuspid Valve * Normal tricuspid valve structure. * No tricuspid stenosis. * Mild tricuspid regurgitation. * Estimated RVSP is 33 mmHg. * Estimated RA pressure is 3 mmHg. * No pulmonary hypertension. Pulmonic Valve * Pulmonic valve is not well visualized. * No pulmonic stenosis. * No pulmonic regurgitation. Aorta * Normally sized aortic root. Pericardium * The pericardium appears normal. IVC * The IVC is not dilated. * > 50% respiratory change Chest X-Ray 07/16/19 04:00 IMPRESSION: Near complete resolution of interstitial opacities compatible with resolving pulmonary edema or less likely an interstitial pneumonia. D/ / Hannah Staley MD / Hannah Staley MD Interpreting Provider: Hannah Staley MD Active Medications Aspirin (Aspirin) 81 mg PO DAILY [facility]VIS Stop: 01/14/20 09:01 Last Admin: 07/16/19 08:24 Dose: 81 mg Documented by: Atorvastatin Calcium (Lipitor) 80 mg PO HS [facility]VIS Stop: 01/14/20 21:01 Last Admin: 07/15/19 21:02 Dose: 80 mg Documented by: Clopidogrel Bisulfate (Plavix) 75 mg PO DAILY [facility]VIS Stop: 01/14/20 09:01 Last Admin: 07/16/19 08:24 Dose: 75 mg Documented by: Gabapentin (Neurontin) 300 mg PO QAM [facility] Stop: 01/16/20 09:01 Gabapentin (Neurontin) 600 mg PO HS [facility]VIS Stop: 01/15/20 21:01 Heparin Sodium (Porcine) (Heparin) 5,000 unit SQ Q12HCO [facility]VIS; Protocol Stop: 01/15/20 18:01 Nitroglycerin (Nitroglycerin Premix 25 Mg/250 Ml) 25 mg in 250 mls @ 3 mls/hr IVC .Q24H [facility]VIS Stop: 01/14/20 01:46 Last Infusion: 07/16/19 11:20 Dose: 20 mcg/min, 12 mls/hr Documented by: Lansoprazole (Prevacid) 15 mg PO QAM ELVIS; Protocol Stop: 01/16/20 09:01 Lisinopril (Zestril) 10 mg PO DAILY ELVIS; Protocol Stop: 01/16/20 09:01 Lisinopril (Zestril) 5 mg PO ONCE ONE; Protocol Stop: 07/16/19 12:13 Melatonin (Melatonin) 9 mg PO HS PRN PRN Reason: Insomnia Stop: 01/14/20 23:04 Last Admin: 07/15/19 23:16 Dose: 9 mg Documented by: Metoprolol Tartrate (Lopressor) 25 mg PO BID [facility] Stop: 01/14/20 21:01 Last Admin: 07/16/19 08:24 Dose: 25 mg Documented by: Non-Formulary Medication (Ascorbate Calcium [Vitamin C]) 500 mg PO DAILY [facility] Stop: 01/16/20 09:01 Non-Formulary Medication (Chlorhexidine Gluconate [Hibiclens]) 15 ml TP BID [facility] Stop: 01/15/20 21:01 Non-Formulary Medication (Multivitamin [One Daily Essential]) 1 tab PO DAILY [facility] Stop: 01/16/20 09:01 Tamsulosin HCl (Flomax) 0.4 mg PO DAILY [facility]; Protocol Stop: 01/16/20 09:01 Vitamin D (Vitamin D) 1,000 unit PO DAILY [facility] Stop: 01/16/20 09:01 Laboratory Tests 07/16/19 07/16/19 10:44 10:44 Hgb 11.6 L D Creatinine 1.13 - Imaging and Cardiology Chest Xray: report reviewed Echo: report reviewed Cardiac cath: report reviewed Consult Discharge Plan - Plan [facility]errals: [facility]Primary Care Provider[facility] -
[2019-07-16] MEDS ORDERED: Melatonin 3 MG TABLET PO PRN (12:24)
[2019-07-16] MEDS: Furosemide 20 MG TABLET PO SCH (13:29)
[2019-07-16] MEDS ORDERED: *HR* Heparin 5,000 UNIT/ML VIAL SQ SCH (18:00)
[2019-07-16] MEDS: *HR* Heparin 5,000 UNIT/ML VIAL SQ SCH (18:05)
[2019-07-16] MEDS ORDERED: Gabapentin 300 MG CAPSULE PO SCH (21:00)
[2019-07-16] MEDS ORDERED: CHLORHEXIDINE GLUCONATE TP SCH (21:00)
[2019-07-16] MEDS: Chlorhexidine Rinse 15 ML MOUTHWASH MM SCH (21:19)
[2019-07-16] MEDS: Gabapentin 300 MG CAPSULE PO SCH (21:20)
--- NOTE | 2019-07-17 00:24 | Electrocardiograph Report ---
[employer] Test Date: 2019-07-15 Pat Name: Emanuel Mack Department: EXAM19 Room: [facility] Gender: M First Assistant: : 1950 Requested By: Hari Wolfe Order Number: [id number] Reading MD: Staci Levi Measurements Intervals [place] Rate: 87 P: 75 LA: 180 QRS: 78 QRSD: 83 T: 172 QT: 369 QTc: 444 Interpretive Statements Sinus rhythm Probable left atrial enlargement Repolarization abnormality Electronically Signed On 07-17-2019 0:22:31 EDT by Staci Levi
[2019-07-17] MEDS: *HR* Heparin 5,000 UNIT/ML VIAL SQ SCH ×2 (06:24→17:45)
[2019-07-17] MEDS: Cholecalciferol (D-3) 1,000 UNIT (25MCG) TABLET PO SCH (08:36)
[2019-07-17] MEDS: Ascorbic Acid 500 MG TABLET PO SCH (08:36)
[2019-07-17] MEDS: Multivit/Ca/Min/Fe/FA 1 TAB TABLET PO SCH (08:36)
[2019-07-17] MEDS: Aspirin 81 MG TAB.CHEW PO SCH (08:36)
[2019-07-17] MEDS: Gabapentin 300 MG CAPSULE PO SCH ×2 (08:36→20:38)
[2019-07-17] MEDS: Chlorhexidine Rinse 15 ML MOUTHWASH MM SCH ×2 (08:37→20:38)
[2019-07-17] MEDS: Furosemide 20 MG TABLET PO SCH (08:37)
[2019-07-17] MEDS ORDERED: Cholecalciferol (D-3) 1,000 UNIT (25MCG) TABLET PO SCH (09:00)
[2019-07-17] MEDS ORDERED: NON-FORMULARY MEDICATION 1 EACH EACH (Ascorbate Calcium [Vitamin C] 500 MG) PO SCH (09:00)
[2019-07-17] MEDS ORDERED: NON-FORMULARY MEDICATION 1 EACH EACH (Multivitamin [One Daily Essential] 1 TAB) PO SCH (09:00)
[2019-07-17] MEDS ORDERED: Gabapentin 300 MG CAPSULE PO SCH (09:00)
--- NOTE | 2019-07-17 11:16 | Cardiology Progress Note ---
Date of Encounter: 07/17/19 Time of Encounter: 09:15 Assessment and Plan (1) ST elevation myocardial infarction (STEMI) Current Visit: Yes Status: Acute Per cardiology: -Admitted as STEMI, s/p [facility] with PCI to left main with TY. Has remaining moderate CAD. -Denies chest pain. -ON asa, statin, BB, plavix. Educated on dual anti-platelet therapy uninter rupted for at least one year. -Right groin access site without ecchymosis or hematoma. -TTE with LVEF 40-45%, segmental wall motion abnormalities noted. -Plan to transfer out of ICU today. -Continue telemetry. -DVT prophylaxis. -WIll continue to closely monitor. Anticipate discharge home in am. Qualifiers: Involved coronary artery: unspecified coronary artery Qualified Code(s): I21.3 - ST elevation (STEMI) myocardial infarction of unspecified site (2) Acute systolic CHF (congestive heart failure) Current Visit: Yes Status: Acute Per cardiology: -Acute systolic CHF, reported NYHA class IV symptoms upon presentation. -Patient was diuresed yesterday. -CHest x-ray this am with near resolution of pulmonary edema. -Euvolemic on exam today. -LVEF as above, 40-45%. -On BB, carroll inhibitor. -Continue oral lasix today. -Strict i/os, fluid restriction, daily weights. -Will switch BB to long acting prior to discharge. (3) Essential hypertension Current Visit: Yes Status: Chronic Per cardiology: -Known HTN. Now off nitro. -Continue BB, carroll inhibitor. -BP currently 120-140s. -Will continue to monitor. Discussion w patient/family: The assessment and plan as outlined above was discussed with the patient who expressed understanding and agreement. All questions were answered. Thank you for involving us in the care of your patient. Please call with any questions. Discussed and reviewed with . Subjective Principal diagnosis: STEMI Interval history: Patient is s/p [facility] Thursday with PCI to left main. Patient denies chest pain. Patient states he feels well. Denies shortness of breath. Objective Vital Signs, Last 4 Hours Temp Pulse 07/17/19 08:45 60 07/17/19 07:51 98.8 F Vital Signs O2 Sat by Pulse Oximetry 88 07/15/19 01:32 Temperature 98.8 F 07/17/19 07:51 Pulse Rate 60 07/17/19 08:45 Respiratory Rate 20 07/17/19 06:00 Blood Pressure 143/65 07/17/19 04:00 O2 Sat by Pulse Oximetry 93 07/17/19 04:00 Oxygen Delivery Oxygen Delivery Nasal Cannula General: Conversant, No Apparent Distress HEENT: Atraumatic, Normocephaly, Mucus Membranes Moist Neck: No JVD, Normal carotid pulses Cardiac: Reg Rate and Rhythm, Normal S1 and S2, No Murmur Lungs: Normal Breath Sounds, No Wheeze, Rales, Rhonchi Neuro: Alert and responsive, No focal deficits noted Abdomen: Soft, Non-Tender Skin: No rashes noted on visualized skin, Other (Right groin access site without hematoma or ecchymosis. ) Musculoskeletal: No Chest Wall Tenderness Extremities: No Clubbing, No Cyanosis, No Edema, Normal Pulses Results 07/16/19 10:44 07/16/19 10:44 Active Medications Ascorbic Acid (Vitamin C) 500 mg PO DAILY [facility] Stop: 01/16/20 09:01 Last Admin: 07/17/19 08:36 Dose: 500 mg Documented by: Aspirin (Aspirin) 81 mg PO DAILY [facility] Stop: 01/14/20 09:01 Last Admin: 07/17/19 08:36 Dose: 81 mg Documented by: Atorvastatin Calcium (Lipitor) 80 mg PO [facility] Stop: 01/14/20 21:01 Last Admin: 07/16/19 21:19 Dose: 80 mg Documented by: Chlorhexidine Gluconate (Chlorhexidine Rinse) 15 ml MM BID [facility] Stop: 01/15/20 21:01 Last Admin: 07/17/19 08:37 Dose: 15 ml Documented by: Clopidogrel Bisulfate (Plavix) 75 mg PO DAILY [facility] Stop: 01/14/20 09:01 Last Admin: 07/17/19 08:37 Dose: 75 mg Documented by: Furosemide (Lasix) 20 mg PO DAILY [facility] Stop: 01/15/20 12:31 Last Admin: 07/17/19 08:37 Dose: 20 mg Documented by: Gabapentin (Neurontin) 600 mg PO [facility] Stop: 01/15/20 21:01 Last Admin: 07/16/19 21:20 Dose: 600 mg Documented by: Gabapentin (Neurontin) 300 mg PO REPLACED BY [facility] Stop: 01/16/20 09:01 Last Admin: 07/17/19 08:36 Dose: 300 mg Documented by: Heparin Sodium (Porcine) (Heparin) 5,000 unit SQ Q12HCO [facility]; Protocol Stop: 01/15/20 18:01 Last Admin: 07/17/19 06:24 Dose: 5,000 unit Documented by: Nitroglycerin (Nitroglycerin Premix 25 Mg/250 Ml) 25 mg in 250 mls @ 3 mls/hr IVC .Q24H [facility] Stop: 01/14/20 01:46 Last Admin: 07/16/19 13:30 Dose: Not Given Documented by: Lansoprazole (Prevacid) 15 mg PO QAM [facility]; Protocol Stop: 01/16/20 09:01 Last Admin: 07/17/19 08:39 Dose: 15 mg Documented by: Lisinopril (Zestril) 10 mg PO DAILY [facility]; Protocol Stop: 01/16/20 09:01 Last Admin: 07/17/19 08:37 Dose: 10 mg Documented by: Melatonin (Melatonin) 9 mg PO HS PRN PRN Reason: Insomnia Stop: 01/14/20 23:04 Metoprolol Tartrate (Lopressor) 25 mg PO BID [facility] Stop: 01/14/20 21:01 Last Admin: 07/17/19 08:37 Dose: 25 mg Documented by: Multivitamins/Calcium (Thera M Plus) 1 tab PO DAILY [facility] Stop: 01/16/20 09:01 Last Admin: 07/17/19 08:36 Dose: 1 tab Documented by: Tamsulosin HCl (Flomax) 0.4 mg PO DAILY [facility]; Protocol Stop: 01/16/20 09:01 Last Admin: 07/17/19 08:37 Dose: 0.4 mg Documented by: Vitamin D (Vitamin D) 1,000 unit PO DAILY [facility] Stop: 01/16/20 09:01 Last Admin: 07/17/19 08:36 Dose: 1,000 unit Documented by: - Imaging and Cardiology Chest Xray: report reviewed Echo: report reviewed Cardiac cath: report reviewed - EKG Interpretation EKG results cardiology: other Consult Discharge Plan - Plan [facility]: [facility] Care Provider[facility] -
[2019-07-17] MEDS: Nitroglycerin 25 MG/250 ML INFUS..BTL IVC SCH (11:25)
[2019-07-18] MEDS: *HR* Heparin 5,000 UNIT/ML VIAL SQ SCH (06:26)
[2019-07-18 07:52] VITALS: BP 134/64
[2019-07-18 08:11] LABS: Basophils # 0.1 K/mcL (0.0-0.2); Basophils % 0.8 %; Eosinophils # 0.6 K/mcL (0.0-0.6); Eosinophils % 5.1 %; Hematocrit 32.6 % (37.5-50.1); Hemoglobin 11.2 g/dL (12.9-16.9); Immature Granulocytes % 1.3 % (0-4); Lymphocytes # 3.3 K/mcL (0.6-4.6); Lymphocytes % 27.6 %; Mean Corpuscular HGB Conc 34.4 g/dL (31.6-35.5); Mean Corpuscular Hemoglobin 31.6 pg (28.0-33.3); Mean Corpuscular Volume 92.1 fL (83.0-100.0); Monocytes # 0.8 K/mcL (0.0-1.3); Monocytes % 6.9 %; Neutrophils # 6.9 K/mcL (1.6-8.9); Platelet Count 265 K/mcL (140-400); Red Blood Count 3.54 M/mcL (4.19-5.50); Red Cell Distribution Width 12.6 % (11.5-14.5); Segmented Neutrophils % 58.3 %; White Blood Count 11.9 K/mcL (4.3-11.1)
[2019-07-18 08:23] LABS: BUN/Creatinine Ratio 26 (6-26); Blood Urea Nitrogen 29 mg/dL (8-23); Calcium 8.9 mg/dL (8.6-10.3); Carbon Dioxide 27 mEq/L (23-29); Chloride 104 mEq/L (98-107); Glucose 108 mg/dL (70-105); Osmolality,Calculated 292 (280-300); Sodium 138 mEq/L (136-145); eGFR For African Americans > 60 (> 60); eGFR For Non-African Americans > 60 (> 60)
[2019-07-18] MEDS: Aspirin 81 MG TAB.CHEW PO SCH (08:31)
[2019-07-18] MEDS: Furosemide 20 MG TABLET PO SCH (08:31)
[2019-07-18] MEDS: Cholecalciferol (D-3) 1,000 UNIT (25MCG) TABLET PO SCH (08:31)
[2019-07-18] MEDS: Gabapentin 300 MG CAPSULE PO SCH (08:31)
[2019-07-18] MEDS: Multivit/Ca/Min/Fe/FA 1 TAB TABLET PO SCH (08:31)
[2019-07-18] MEDS: Ascorbic Acid 500 MG TABLET PO SCH (08:31)
--- NOTE | 2019-07-18 09:56 | Discharge Summary ---
- NOTES TO OUTPATIENT PROVIDER Notes to Outpatient Provider: Admitted as STEMI underwent emergent LHC with PCI to LM. Date of Encounter: 07/18/19 Time of Encounter: 09:00 - Discharge Diagnosis (1) ST elevation myocardial infarction (STEMI) Priority: Primary Status: Acute Comments: LM STEMI, s/p PCI Qualifiers: Involved coronary artery: unspecified coronary artery Qualified Code(s): I21.3 - ST elevation (STEMI) myocardial infarction of unspecified site (2) Acute systolic CHF (congestive heart failure) Priority: Secondary Status: Acute Comments: Currently euvolemic. (3) Essential hypertension Priority: Secondary Status: Chronic Comments: Known, BP currenlty controlled. - Hospital Course Hospital course: Mr. Mack is a 69 year old male who was admitted to [facility] as acute STEMI. Patient underwent emergent LHC with PCI to left main. Patient denies chest pain, has been stable. On asa, plavix. Educated on dual anti-platelet therapy uninterrupted for at least one year, likely life long dual anti-platelet therapy, patient states understanding. . On statin, BB. Acute systolic CHF, patient was diuresed and oral diuretic started. LVEF 40-45%, SWMA noted. On BB, carroll inhibitor. Currently euvolemic on exam. Patient is being prepped for discharge home today in stable condition. Right groin access site with mild ecchymosis, no hematoma. Right groin access site management education reviewed with patient, states understanding. All questions answered. Patient will follow with [facility], follow up set. Patient is being discharged with [facility], educated on how to use. - Time Spent with Patient Total time spent providing and/or coordinating discharge services: Less than 30 minutes - Discharge Medications Prescriptions: New Aspirin 81 mg PO DAILY #90 tab.chew Carvedilol [Coreg] 3.125 mg PO BIDWM #180 tablet Furosemide [Lasix] 20 mg PO DAILY #90 tablet Atorvastatin [Lipitor] 80 mg PO HS #90 tablet Lisinopril [Zestril] 10 mg PO DAILY #30 tablet Continued Multivitamin [One Daily Essential] 1 tab PO DAILY Lansoprazole [Prevacid] 15 mg PO QAM Gabapentin [Neurontin] 300 mg PO QAM Gabapentin [Neurontin] 600 mg PO HS Clopidogrel [Plavix] 75 mg PO DAILY Cholecalciferol (D-3) [Vitamin D] 1,000 unit PO DAILY Chlorhexidine Gluconate [Hibiclens] 15 ml TP BID Ascorbate Calcium [Vitamin C] 500 mg PO DAILY Tamsulosin HCl [Flomax] 0.4 mg PO DAILY Discontinued Losartan Potassium [Cozaar] 100 mg PO DAILY Amlodipine Besylate 10 mg PO DAILY Home Medications: Ascorbate Calcium [Vitamin C] 500 mg PO DAILY 07/15/19 [History] Chlorhexidine Gluconate [Hibiclens] 15 ml TP BID 07/15/19 [History] Cholecalciferol (D-3) [Vitamin D] 1,000 unit PO DAILY 07/15/19 [History] Clopidogrel [Plavix] 75 mg PO DAILY 07/15/19 [History] Gabapentin [Neurontin] 300 mg PO QAM 07/15/19 [History] Gabapentin [Neurontin] 600 mg PO HS 07/15/19 [History] Lansoprazole [Prevacid] 15 mg PO QAM 07/15/19 [History] Multivitamin [One Daily Essential] 1 tab PO DAILY 07/15/19 [History] Tamsulosin HCl [Flomax] 0.4 mg PO DAILY 07/15/19 [History] Aspirin 81 mg PO DAILY #90 tab.chew 07/18/19 [Rx] Atorvastatin [Lipitor] 80 mg PO HS #90 tablet 07/18/19 [Rx] Carvedilol [Coreg] 3.125 mg PO BIDWM #180 tablet 07/18/19 [Rx] Furosemide [Lasix] 20 mg PO DAILY #90 tablet 07/18/19 [Rx] Lisinopril [Zestril] 10 mg PO DAILY #30 tablet 07/18/19 [Rx] Allergies/Adverse Reactions: Allergy/AdvReac Type Severity Reaction Status Date / Time No Known Allergies Allergy Verified 07/15/19 15:15 Date of admission: 07/15/19 03:31 Primary care physician: PCP PALAK Consults: 07/15/19 01:47 Consult to Cardiology [CONS] Stat Comment: Consulting Provider: Noemi Foy Reason for Consult: STEMI Call Completed: Yes 07/15/19 03:34 Consult to Cardiac Rehabilitation-Phase1 [CONS] Routine Comment: Reason for Consult: AMI Call Completed: Yes Consult to Nurse Navigator [CONS] Routine Comment: Discharging clinician: Deborah Rodriguez Anticipated date of discharge: 07/18/19 Physical Examination Vital Signs, Last 4 Hours Temp Pulse Resp BP Pulse Ox 07/18/19 07:50 98.2 F 57 18 134/64 97 General: Conversant, No Apparent Distress HEENT: Atraumatic, Normocephaly, Mucus Membranes Moist Neck: No JVD, Normal carotid pulses Cardiac: Reg Rate and Rhythm, Normal S1 and S2, No Murmur Lungs: Normal Breath Sounds, No Wheeze, Rales, Rhonchi Neuro: Alert and responsive, No focal deficits noted Abdomen: Soft, Non-Tender Skin: No rashes noted on visualized skin, Other (Right groin access site with mild ecchymosis, no hematoma. ) Musculoskeletal: No Chest Wall Tenderness Extremities: No Clubbing, No Cyanosis, No Edema, Normal Pulses - Patient Status Disposition: Home, Self-Care Condition: Fair Functional capacity at discharge: independent ambulation Overall status at discharge: patient is progressing back to baseline - Discharge Instructions Follow Up With: Deborah Rodriguez, NOTEREADER [Advanced Practice Nurse] - (Per the cardiology office they will call the patient at home with a follow up appointment) [facility] - ([facility] and get a follow up appointment, due to them being closed today.) Additional Instructions: RISK FACTORS: STOP SMOKING: If you smoke, STOP. Smoking or tobacco use significantly i ncreases your risk of heart disease because nicotine causes the arteries to narrow or constrict. It also causes fats to stick to the artery. Your chances of having a heart attack are greatly increased if you continue to smoke. For more information, call the education line for smoking cessation 1-650-WQCWPNH EAT A LOW FAT/CHOLESTEROL/SODIUM DIET: This diet may help reduce your chances of having a heart attack. LIFTING: Avoid lifting anything more than 10 pounds for 5-7 days Prior to straining, laughing, sneezing and/or coughing, apply manual pressure directly over insertion site. ACTIVITY: You may walk or climb stairs as tolerated You can resume sexual activity as tolerated In general, you are encouraged to engage in a minimum of 30 minutes or more of moderate intensity physical activity, such as brisk walking, daily or at least 3-4 times weekly BATHING Do not submerge the site into water (bath tub, hot tub, swimming pool) for 1 week. This can be a source for infection into the blood stream. You may shower after 24 hours SITE CARE: After 24 hours, you may remove the dressing and leave the site open to air. Keep the site clean and dry. Clean gently and pat dry. You can expect bruising and tenderness that gradually resolve within a week or two. Return to work as instructed per your physician Resume driving as instructed per physician Keep all scheduled follow up appointments Resume medications as instructed IMPORTANT: If prescribed a Platelet Aggregation Inhibitor such as, Plavix, Brilinta or Effient: Duration of therapy is minimum one year These medications are often used in combination with Aspirin in prevention of future heart attacks Never discontinue unless consult with your Court Commissioner STROKE (CVA) Risk factors for a stroke are: Age, cigarette smoking, diabetes, excessive alcohol consumption, family history, high blood pressure, overweight, physical inactivity, prior stroke, heart attack, diagnosis of carotid artery stenosis or other artery disease. Warning signs: Sudden numbness or weakness of the face, arm or leg; especially on one side of the body, sudden confusion, trouble speaking or understanding, sudden trouble seeing in one or both eyes, sudden trouble walking, dizziness, loss of balance or coordination, sudden severe headache with no cause. Call 911 or go to the Emergency Room. CONGESTIVE HEART FAILURE: If you have been diagnosed with Congestive Heart Failure (CHF) and your symptoms return, make an appointment with your physician Weigh yourself daily. Notify your physician if you have a weight gain of two or more pounds in one day or five or more pounds in one week. If you experience any difficulty breathing, please call 911 BLEEDING: Although the risk of bleeding is minimal, it can happen. If you have any bleeding from the site, apply firm pressure above the puncture site for 10-15 minutes. If the bleeding does not stop, continue manual pressure and call 911 CARDIAC REHABILITATION: If you have had a heart attack or cardiac stents placed, please ask your c ardiologist if Cardiac Rehabilitation is right for you. Cardiac Rehabilitation is recommended, beneficial to your health and can improve the following: strengthen your heart, improve ejection fraction, weight reduction, decrease cholesterol levels, lower blood pressure, lower blood sugar, improve stamina and enhance self-image. If you have any questions please call [facility] at [phone]. Contact your physician if: You develop a fever greater than 101 degrees Fahrenheit Your site becomes reddened or has any drainage You have an increase in pain or burning at the site or if a large knot forms at the site. If you experience chest pain, shortness of breath, dizziness, or extreme tiredness, stop the activity and rest. Please notify your physicians office if you experience any of these symptoms and they are not relieved by rest please call 911! - Diet and Activity Activity: increase activity as tolerated (Follow restrictions as above. ) Diet: low fat, low cholesterol, low salt diet
--- NOTE | 2019-07-18 22:18 | Electrocardiograph Report ---
[address] [address] Test Date: 2019-07-15 Pat Name: Emanuel Mack Department: 109 Room: 2N12 Gender: M Supervisor Counseling And Guidance: : 1950 Requested By: Alberto Laird Order Number: [id number] Reading MD: Gallo Ng Measurements Intervals [place] Rate: 126 P: 72 NE: 162 QRS: 83 QRSD: 90 T: 46 QT: 326 QTc: 401 Interpretive Statements SINUS TACHYCARDIA NONSPECIFIC ST & T-WAVE ABNORMALITY Electronically Signed On 07-18-2019 22:17:29 EDT by Gallo Ng
--- NOTE | 2019-07-19 09:33 | Electrocardiograph Report ---
[address] [address] Test Date: 2019-07-16 Pat Name: Emanuel Mack Department: 109 Room: 2N12 Gender: M Machine Design Engineer: : 1950 Requested By: Alberto Laird Order Number: [id number] Reading MD: Gallo Ng Measurements Intervals [place] Rate: 75 P: 69 MN: 173 QRS: 67 QRSD: 79 T: 7 QT: 383 QTc: 412 Interpretive Statements SINUS RHYTHM NONSPECIFIC ST & T-WAVE ABNORMALITY Electronically Signed On 07-19-2019 9:31:47 EDT by Gallo Ng
== END 2019-07-18 11:51 | disposition home or self-care (01) | DRG 246 ==
LOC: EMEROOARM 01:21 → ICNU 02:35 → 2NNU 07-17 11:02
PROVIDERS: ADMIT Internal Medicine Cardiovascular Disease; ATTEND Internal Medicine